=== PATIENT | female | born 1995 | race Caucasian/White ===

== ENCOUNTER 2016-10-06 18:43 | Emergency (ER) | payer SELFPAY ==
[~2016-10-06] VITALS: Ht 160 cm; Wt 59.1 kg
[2016-10-06 18:47] VITALS: BP 110/60; PULSE 73; TEMP 97.8
[2016-10-06] MEDS ORDERED: FLEXERIL 1010 MG/TAB PO (20:31)
== END 2016-10-06 20:53 | disposition home or self-care (01) ==
LOC: COL.ER 18:43
DX: S16.1XXA Strain of muscle, fascia and tendon at neck level, initial encounter (principal); S13.4XXA Sprain of ligaments of cervical spine, initial encounter; V48.6XXA Car passenger injured in noncollision transport accident in traffic accident, initial encounter; Y92.410 Unspecified street and highway as the place of occurrence of the external cause